=== PATIENT | male | born 1990 | race Hispanic/Latino ===

== ENCOUNTER 2021-11-05 08:26 | Day surgery (SDC) | payer OTHER, BC, SELFPAY ==
[2021-11-05] VITALS (7 sets, daily range): BP systolic 123–162; BP diastolic 73–98; PULSE 55–72; RESP 16–18; TEMP 36.2–36.6; O2SAT 93–99; BMI 28.4
--- NOTE | 2021-11-05 09:07 | EKG12_ITS ---
Test Reason : PREOP Blood Pressure : / mmHG Vent. Rate : 054 BPM Atrial Rate : 054 BPM P-R Int : 168 ms QRS Dur : 098 ms QT Int : 416 ms P-R-T Axes : 011 000 002 degrees QTc Int : 394 ms Sinus bradycardia Otherwise normal ECG No previous ECGs available Confirmed by JAYSHREE ESPINAL, ROSA ([id number]), publication editor BONNIE XIAO ([id number]) on 11/10/2021 9:38:04 AM Referred By: Nael Napier Confirmed By:ROSA MARTELL MD
[2021-11-05] MEDS: Lactated Ringers 1,000 ML 15 ML IV (09:40)
--- NOTE | 2021-11-05 10:15 | RAD_ITS ---
STUDY: X-RAY - LEFT CLAVICLE REASON FOR EXAM: Intraoperative fluoroscopy for ORIF of left clavicle fracture. TECHNIQUE: 2 intraoperative images of the clavicle. COMPARISON: None. FINDINGS: There is an orthopedic plate and screws transfixing a clavicular fracture in anatomical alignment and position. 8.6 seconds of fluoroscopy time was used. Electronically Signed: Neptali Medeiros MD at 13:26 EST Tel , Service support , RAD/Clavicle
[2021-11-05] MEDS: Bupivacaine Mpf 0.5% 30 ML VIAL (12:15)
[2021-11-05] MEDS: Lidocaine 1% /Epi 1:100 (50ml) 50 ML VIAL (12:15)
--- NOTE | 2021-11-05 12:38 | OP.PCM_ITS ---
Report of Operation Date of Procedure: 11/05/21 Description of Surgical Findings:: Preoperative diagnosis: Left displaced midshaft clavicle fracture Postoperative diagnosis: Left displaced midshaft clavicle fracture Procedure: Open reduction internal fixation left midshaft clavicle fracture Surgeon: Nael Napier DO [employer] Counselor: MAI Black Anesthesia: General endotracheal Anesthesiologist: Dr. 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 The fracture was reasonably well aligned upon initial presentation. We initially managed him nonoperatively in a sling. After 3 weeks, I saw the patient back and x-rays appeared worse. I brought him back 2 more weeks after keeping him in a sling and she demonstrated worsening fracture alignment. At 6 weeks with gross motion noted at the fracture site and no evidence of union on x-ray, I recommended operative intervention due to amount of displacement and risk of nonunion. Operative intervention in the form of left clavicle open reduction internal fixation was offered. We discussed the risks, benefits, alternatives to the procedure. The risks include but are not limited to bleeding, infection, loss of life or limb, risk of anesthesia, risk of nerve injury, persistent pain, nonunion, malunion, need for additional surgery, failure of orthopedic hardware, wound complication, symptomatic hardware. Patient expressed understanding of these risks and wished to proceed. Description of procedure: Patient was seen in preoperative holding area. He was identified by name, medical record number, date of . The operative extremity was marked with a surgical marker. We confirmed informed consent with the patient and all questions were answered to her satisfaction. Anesthesia consent was also obtained by the anesthesia team prior to procedure. At time of his procedure, patient was brought to the operative suite and positioned supine on a standard operating table. All bony prominences were well-padded. General anesthesia was then induced and endotracheal tube placed. After the tube was secured in adequate anesthesia, we turned our attention to the left clavicle. A bump was placed under the patient's left scapula. The area was shaved. Both arms were positioned on an arm board. The operative extremity was adducted to his side. We then prepped and draped the left clavicle in a normal, sterile orthopedic fashion. We performed a timeout with all parties in attendance in agreement with the side, site, operation to be performed. 2 g Ancef was administered prior to incision by anesthesia staff. No concerns were voiced and we elected to proceed. First I was able to easily identify the level of the fracture by palpation. We center an incision over the clavicle, incision was approximately 12 cm in length. I first anesthetized the skin and subcutaneous tissue with 8 cc of 1% lidocaine with 1:100,000 epinephrine for analgesia, anesthesia, and hemostasis. After adequate time, we utilized a 10 blade to carry incision sharply through the skin and subcutaneous tissue. The platysma and fascia was encountered. We placed self-retaining retractors to elevate the tissues. I then carried dissection deeper with the Bovie cautery in line with the incision to the level of the periosteum. Periosteum was elevated and appear to be stripped from the fracture centrally, and the remainder of the exposed bone was not stripped the periosteum. Fracture was identified. There is significant early callus forming, however displacement was noted over 100%. The distal segment was depressed deep to the proximal segment/medial segment with over 100% displacement. I debrided early callus with a rongeur and thoroughly irrigated the fracture site. I placed lobster-claw clamps on both ends of the fracture with a combination of longitudinal traction and shoulder abduction, was able to anatomically reduce the fracture. We then selected a appropriately sized central third Arthrex precontoured anatomic superior clavicle plate. I held this in place with lobster claws. We first drilled a cortical screw in neutralization fashion in the lateral segment. I then drilled a eccentric hole in the medial segment inserting a cortical screw to achieve compression across the fracture site. 2 additional bicortical cortex screws were placed on either side the fracture achieving 6 cortices of fixation. The screw hole most adjacent to the fracture site in the lateral segment had poor purchase, and it was exchanged for a locking screw. Final fluoroscopic images were obtained after retractors were removed, hardware appeared to be appropriate length, position and fracture was anatomically reduced. We then thoroughly irrigated the wound with normal saline solution. I performed a field block with 10 cc 0.5% plain bupivacaine for more long-lasting analgesia postoperatively. Fascial layer was closed with 0 Vicryl running locking stitch. Subcutaneous layers were closed with 2-0 Vicryl suture buried. Skin was finally reapproximated with a running subcuticular 3-0 Monocryl. Skin glue was finally used to seal the wound. A sterile compression dressing was then applied. Patient tolerated procedure well without complication. He is able be safely extubated in the operative suite and transferred to the [facility] and subsequently to PACU in stable condition. Intraoperative medications: 8 cc 1% lidocaine with 1: 100,000 epinephrine, 2 g Ancef IV prior to incision Post Operative Plan: Weightbearing: Nonweightbearing operative extremity Antibiotics: Ancef 2 g x 1 dose preoperatively DVT Prophylaxis: Early ambulation Christianson: None Dressing: Maintain dressing x3 days, then okay to remove and shower. Sling when upright. X-Rays: 2 weeks postop in the office Pain Medication: Percocet upon discharge Follow-up: 2 weeks post-operatively with me in the office
== END 2021-11-05 23:59 | disposition home or self-care (01) ==
LOC: SDC 08:46 → AC 08:49
PROVIDERS: Referring Provider Student in an Organized Health Care Education/Training Program; Visit Provider Student in an Organized Health Care Education/Training Program
PROC: (CPT 23515; principal; 2021-11-05 09:55)
DX: S42.022A Displaced fracture of shaft of left clavicle, initial encounter for closed fracture (principal); X58.XXXA Exposure to other specified factors, initial encounter; Y93.9 Activity, unspecified; Y92.9 Unspecified place or not applicable
CPT/HCPCS: 23515; 00450; 73000; 76000; 93005; C1713; J7120; J0330; J2405